=== PATIENT | female | born 1990 | race Caucasian/White ===

== ENCOUNTER → 2021-07-09 11:30 | Outpatient (BNVA) | payer OTHER, SELFPAY | PROVIDERS: Visit Provider Nurse Practitioner Women's Health | DX: Z01.419 Encounter for gynecological examination (general) (routine) without abnormal findings (principal); L91.8 Other hypertrophic disorders of the skin; N90.89 Other specified noninflammatory disorders of vulva and perineum | CPT/HCPCS: 87624; 88304 ==

== ENCOUNTER → 2022-05-07 10:15 | Outpatient (BNVA) | payer OTHER, SELFPAY | PROVIDERS: Visit Provider Nurse Practitioner Family | DX: F41.9 Anxiety disorder, unspecified (principal); E28.2 Polycystic ovarian syndrome; E66.9 Obesity, unspecified; R53.83 Other fatigue; Z13.1 Encounter for screening for diabetes mellitus; E88.81 Metabolic syndrome and other insulin resistance | CPT/HCPCS: 80053; 80061; 82672; 83036; 84403; 84443 ==

== ENCOUNTER → 2022-08-27 16:00 | Outpatient (BNVA) | payer OTHER, SELFPAY | PROVIDERS: Visit Provider Nurse Practitioner Women's Health | DX: Z01.419 Encounter for gynecological examination (general) (routine) without abnormal findings (principal) | CPT/HCPCS: 87624 ==

== ENCOUNTER → 2024-01-07 14:55 | Outpatient (BNVA) | payer OTHER, SELFPAY | PROVIDERS: Visit Provider Nurse Practitioner Family | DX: R30.0 Dysuria (principal) | CPT/HCPCS: 81000 ==

== ENCOUNTER → 2024-08-07 16:32 | Outpatient (BNVA) | payer OTHER, SELFPAY | DX: R39.9 Unspecified symptoms and signs involving the genitourinary system (principal) | CPT/HCPCS: 81000 ==

== ENCOUNTER → 2024-11-28 09:17 | Outpatient (BNVA) | payer OTHER, SELFPAY | PROVIDERS: PCP Nurse Practitioner Family; Visit Provider Nurse Practitioner Family | DX: L98.9 Disorder of the skin and subcutaneous tissue, unspecified (principal); E55.9 Vitamin D deficiency, unspecified; R21 Rash and other nonspecific skin eruption | CPT/HCPCS: 80053; 80061; 82306; 84443; 85025 ==